=== PATIENT | male | born 1990 | race Caucasian/White ===

== ENCOUNTER 2020-08-23 04:05 | Emergency (ER) | payer MEDICAID ==
[~2020-08-23] VITALS: Ht 167.6 cm; Wt 68.2 kg
[2020-08-23] MEDS ORDERED: FLUORESCEIN SODIUM 1 MG STRIP OD ONE (05:00)
[2020-08-23] MEDS ORDERED: PROPARACAINE HCL 0.5% 15 ML OPHTHALMIC SOLUTION OD ONE (05:00)
[2020-08-23] MEDS ORDERED: FLUORESCEIN SODIUM 1 MG STRIP ONE (05:01)
[2020-08-23] MEDS ORDERED: PROPARACAINE HCL 0.5% 15 ML OPHTHALMIC SOLUTION ONE (05:01)
[2020-08-23 05:29] VITALS: BP 118/75
[2020-08-23] MEDS ORDERED: OFLOXACIN 0.3% 5 ML OPHTHALMIC SOLUTION OD ONE (05:30)
== END 2020-08-23 06:09 | disposition home or self-care (01) ==
LOC: EMS 04:06
DX: T15.01XA Foreign body in cornea, right eye, initial encounter (principal); T15.11XA Foreign body in conjunctival sac, right eye, initial encounter; X58.XXXA Exposure to other specified factors, initial encounter; Y93.89 Activity, other specified; Y92.89 Other specified places as the place of occurrence of the external cause; Y99.8 Other external cause status
CPT/HCPCS: 99283